=== PATIENT | male | born 1955 | race Caucasian/White ===

== ENCOUNTER 2021-01-10 16:14 | Emergency (ER) | payer SELFPAY ==
[~2021-01-10] VITALS: Ht 175.3 cm; Wt 60.0 kg
[2021-01-10] MEDS ORDERED: PIPERONYL BUTOXIDE/PYRETHRINS 4OZ. SHAMPOO ONE (16:59)
--- NOTE | 2021-01-10 17:54 | NUR ---
BIBA FOR RT EYE WOUND AND LICE FROM [facility] ASSISTED. PT FIRST TAKEN TO DECON ROOM AND CLEANED OFF FROM LICE. PT STATES HE CANNOT SEE FROM RT EYE BUT IS ABLE TO SEE "A LITTLE BIT" FROM LEFT EYE. RT EYE VERY RED WITH SOME SWELLING AND GREEN/WHITE DISCHARGE. UNABLE TO SEE PUPIL DUE TO GREYISH DISCOLORATION OVER EYE. LEFT EYE RED AND SWOLLEN TO A SMALLER DEGREE, ALSO WITH DISCHARGE, NOT MUCH SAWYER DISCOLORATION NOTED.
--- NOTE | 2021-01-10 19:16 | NUR ---
DR BELCHER GAVE VERBAL ORDERS FOR LICE SHAMPOO ORDER. ORDER REPEATED FOR VERIFICATION.
--- NOTE | 2021-01-10 19:17 | NUR ---
PT DC BACK TO [facility]. PT AMBULATORY WITH STEADY GAIT TO DC DESK. PT ABLE TO REPEAT INSTRUCTIONS ABOUT EYE DROP CARE. PT GIVEN CLEAN CLOTHES.
[2021-01-10 19:18] VITALS: BP 166/88
[2021-01-10] MEDS ORDERED: PIPERONYL BUTOXIDE/PYRETHRINS 4OZ. SHAMPOO TP SCH (19:30)
[2021-01-10] MEDS ORDERED: PROPARACAINE OPHTH 0.5%, 15ML ONE (19:55)
[2021-01-10] MEDS ORDERED: FLUORESCEIN OPHTHALMIC 1 MG STRIP ONE (19:55)
[2021-01-10] MEDS ORDERED: OFLOXACIN OPHTH 0.3%, 5ML RIGHTEYE ONE (21:00)
== END 2021-01-10 19:20 | disposition home or self-care (01) ==
LOC: ED 19:14
DX: H10.021 Other mucopurulent conjunctivitis, right eye (principal); B85.1 Pediculosis due to Pediculus humanus corporis; H40.89 Other specified glaucoma; R00.0 Tachycardia, unspecified; F17.210 Nicotine dependence, cigarettes, uncomplicated
CPT/HCPCS: 93005; 99283; 99406